=== PATIENT | male | born 1950 | race Two or more races ===

== ENCOUNTER 2018-03-02 08:03 | Emergency (ER) | payer OTHER ==
[~2018-03-02] VITALS: Ht 167.6 cm; Wt 88.5 kg
[2018-03-02] MEDS ORDERED: LISINOPRIL5 MG (08:38)
[2018-03-02] MEDS ORDERED: CARDURA XL4 MG (08:39)
== END 2018-03-02 11:24 | disposition home or self-care (01) ==
LOC: ER 08:03 → EDSEX 08:28 → ER 11:24
DX: J06.9 Acute upper respiratory infection, unspecified (principal)

== ENCOUNTER 2022-11-02 12:23 | Emergency (ER) | payer OTHER ==
[~2022-11-02] VITALS: Ht 167.6 cm; Wt 81.6 kg
[~2022-11-02 12:23] MED LIST: CARDURA XL4 MG; LISINOPRIL5 MG
[2022-11-02] MEDS ORDERED: OMEPRAZOLE20 MG PO (12:33)
[2022-11-02] MEDS ORDERED: MELOXICAM7.5 MG PO (12:34)
== END 2022-11-02 17:43 | disposition home or self-care (01) ==
LOC: ER 12:23
DX: R51.9 Headache, unspecified (principal); J32.8 Other chronic sinusitis; I10 Essential (primary) hypertension